=== PATIENT | male | born 1995 | race Two or more races ===

== ENCOUNTER 2020-12-09 13:32 | Emergency (ER) | payer SELFPAY ==
[2020-12-09 13:59] VITALS: BP 117/89
== END 2020-12-09 17:08 ==
LOC: ED 16:00
DX: K08.89 Other specified disorders of teeth and supporting structures (principal)
CPT/HCPCS: 99281

== ENCOUNTER 2020-12-09 22:16 | Emergency (ER) | payer MEDICAID ==
[~2020-12-09] VITALS: Ht 177.8 cm; Wt 59.6 kg
[2020-12-09 22:19] VITALS: BP 129/82
--- NOTE | 2020-12-09 23:00 | NUR ---
NIL X 1 @ [phone]
--- NOTE | 2020-12-09 23:09 | NUR ---
PT ASLEEP ON BENCH. AMBULATORY TO ROOM C STEADY GAIT.
[2020-12-09] MEDS ORDERED: AMOXICILLIN 500 MG CAPSULE PO ONE (23:30)
[2020-12-09] MEDS ORDERED: AMOXICILLIN 500 MG CAPSULE ONE (23:31)
== END 2020-12-10 00:19 | disposition home or self-care (01) ==
LOC: ED 12-10 00:10
DX: K02.9 Dental caries, unspecified (principal); K04.7 Periapical abscess without sinus
CPT/HCPCS: 41800; 99284